=== PATIENT | male | born 1945 | race Two or more races ===

== ENCOUNTER → 2024-04-01 | Outpatient (CLI) | payer MEDICARE, MEDICAID, SELFPAY ==
--- NOTE | 2024-04-01 07:00 | EKG_ITS ---
[facility] Test Date: 2024-04-01 Pat Name: GUSTABO PETERS Department: Room: - Gender: Male Claim Attorney: LUPILLO : 1945 Requested By: Lance Rico Order Number: [id number] Reading MD: Lance Rico Measurements Intervals [place] Rate: 70 P: 5 KS: 182 QRS: -21 QRSD: 90 T: 40 QT: 369 QTc: 400 Interpretive Statements SINUS RHYTHM LEFT VENTRICULAR HYPERTROPHY AND ST-T CHANGE [VOLTAGE CRITERIA PLUS ST/T ABNORMALITY] INFERIOR MYOCARDIAL INFARCTION , PROBABLY OLD [40+ ms Q WAVE AND/OR ST/T ABNORMALITY IN II/aVF] WARNING: DATA QUALITY MAY AFFECT INTERPRETATION No previous ECG available for comparison /[id number]/[email or web address]/[id number]/ecg/[id number].pdf
[2024-04-01 07:01] VITALS: BMI 22.6
[2024-04-01 08:38] LABS: Basophils # (Auto) 0.1 Thou/mm3 (0.0-0.2); Basophils % (Auto) 1 % (0-2.5); Eosinophils # (Auto) 0.4 Thou/mm3 (0.0-0.5); Eosinophils % (Auto) 4 % (0-10); Hematocrit 43.6 % (41.0-53.0); Hemoglobin 14.5 g/dL (13.5-16.0); Immature Granulocytes % (Auto) 0 % (0-0); Immature Granulocytes Auto 0.02 Thou/mm3 (0.00-0.00); Lymphocytes # (Auto) 1.8 Thou/mm3 (1.0-4.8); Lymphocytes % (Auto) 19 % (10-50); Mean Corpuscular HGB Conc 33.3 g/dl (31.0-37.0); Mean Corpuscular Hemoglobin 29.1 pg (25.0-35.0); Mean Corpuscular Volume 88 fL (80-100); Monocytes # (Auto) 0.8 Thou/mm3 (0.0-0.8); Monocytes % (Auto) 8 % (0-12); Neutrophils # (Auto) 6.5 Thou/mm3 (1.8-7.7); Neutrophils % (Auto) 69 % (37-80); Nucleated Red Blood Cell % 0 /100 WBC (0); Platelet Count 223 Thou/mm3 (140-440); RDW Standard Deviation 47.2 fL (35.1-43.9); Red Blood Count 4.98 Miln/mm3 (4.50-5.90); White Blood Count 9.5 Thou/mm3 (3.8-10.6)
[2024-04-01 08:54] LABS: Alanine Aminotransferase 15 U/L (10-49); Albumin, Serum 4.5 gm/dL (3.4-4.8); Albumin/Globulin Ratio 1.2 (1.2-2.2); Alkaline Phosphatase 77 U/L (46-116); Anion Gap 9 (7-16); Aspartate Amino Transferase 22 U/L (0-34); BUN/Creatinine Ratio 19 Ratio (12-20); Bilirubin,Total 0.7 mg/dL (0.3-1.2); Blood Urea Nitrogen 17 mg/dL (9-23); Calcium 9.7 mg/dL (8.3-10.6); Calcium (Corrected) 9.7 mg/dL (8.5-10.1); Carbon Dioxide 29.5 mMol/L (20.0-31.0); Chloride 100 mMol/L (98-107); Creatinine (Component) 0.9 mg/dL (0.6-1.3); Estimated Creatinine Clearance 70.6 mL/min (>60); Globulin 3.7 gm/dL (2.3-3.5); Glucose 114 mg/dL (74-106); Osmolality,Calculated 278 (275-295); Potassium 4.2 mMol/L (3.4-5.1); Sodium 138 mMol/L (136-145); Total Protein 8.2 gm/dL (5.7-8.2); eGFR > 60 See Note
[2024-04-01 09:57] LABS: Collection Type, Urine Clean Catch
[2024-04-01 10:40] LABS: Bilirubin,Urine Negative (Negative); Blood,Urine Negative (Negative); Calcium Oxalate Crystals,Urine 2+; Clarity,Urine Clear (Clear/Hazy); Color,Urine Yellow (Lt Yel-Yel); Glucose, Urine Negative (Negative); Ketones,Urine Negative (Negative); Leukocyte Esterase,Urine Negative (Negative); Nitrite,Urine Negative (Negative); Protein,Urine Trace (Neg - Trace); RBC,Urine 5 /hpf (0-3); Specific Gravity,Urine 1.029 (1.001-1.035); Squamous Epithelial Cell,Urine < 1 /hpf (0-5); Urobilinogen,Urine Negative mg/dL (0.0-1.0); WBC,Urine 1 /hpf (0-5)
== END | disposition home or self-care (01) ==
LOC: SLAB 04-04 08:14
PROVIDERS: Anesthesiology; PCP Physician Assistant Medical; Referring Provider Surgery; Visit Provider Surgery
DX: N40.1 Benign prostatic hyperplasia with lower urinary tract symptoms (principal)
CPT/HCPCS: 36415; 80053; 81001; 85025; 93005

== ENCOUNTER 2024-05-14 11:35 | Day surgery (SDC) | payer MEDICARE, MEDICAID, SELFPAY ==
[2024-05-13 08:39] VITALS: BMI 24.5
[2024-05-13 09:16] LABS: Collection Type, Urine Clean Catch
[2024-05-13 10:55] LABS: Basophils % (Auto) 0 % (0-2.5); Eosinophils # (Auto) 0.1 Thou/mm3 (0.0-0.5); Eosinophils % (Auto) 1 % (0-10); Hematocrit 41.7 % (41.0-53.0); Hemoglobin 13.3 g/dL (13.5-16.0); Immature Granulocytes % (Auto) 0 % (0-0); Immature Granulocytes Auto 0.05 Thou/mm3 (0.00-0.00); Lymphocytes # (Auto) 1.2 Thou/mm3 (1.0-4.8); Lymphocytes % (Auto) 10 % (10-50); Mean Corpuscular HGB Conc 31.9 g/dl (31.0-37.0); Mean Corpuscular Hemoglobin 28.9 pg (25.0-35.0); Mean Corpuscular Volume 91 fL (80-100); Monocytes % (Auto) 8 % (0-12); Neutrophils # (Auto) 10.2 Thou/mm3 (1.8-7.7); Neutrophils % (Auto) 81 % (37-80); Nucleated Red Blood Cell % 0 /100 WBC (0); Platelet Count 266 Thou/mm3 (140-440); RDW Standard Deviation 49.2 fL (35.1-43.9); Red Blood Count 4.61 Miln/mm3 (4.50-5.90); White Blood Count 12.5 Thou/mm3 (3.8-10.6)
[2024-05-13 10:57] LABS: Bilirubin,Urine Negative (Negative); Blood,Urine Negative (Negative); Clarity,Urine Clear (Clear/Hazy); Color,Urine Yellow (Lt Yel-Yel); Glucose, Urine Negative (Negative); Hyaline Casts,Urine < 1 /hpf (0-1); Ketones,Urine Negative (Negative); Leukocyte Esterase,Urine Negative (Negative); Nitrite,Urine Negative (Negative); PH,Urine 6.5 (5.0-7.0); Protein,Urine 1+ (Neg - Trace); RBC,Urine 3 /hpf (0-3); Specific Gravity,Urine 1.028 (1.001-1.035); Squamous Epithelial Cell,Urine < 1 /hpf (0-5); WBC,Urine 1 /hpf (0-5)
[2024-05-13 11:35] LABS: Alanine Aminotransferase 25 U/L (10-49); Albumin, Serum 4.4 gm/dL (3.4-4.8); Albumin/Globulin Ratio 1.2 (1.2-2.2); Alkaline Phosphatase 92 U/L (46-116); Anion Gap 12 (7-16); Aspartate Amino Transferase 30 U/L (0-34); BUN/Creatinine Ratio 24 Ratio (12-20); Bilirubin,Total 1.3 mg/dL (0.3-1.2); Blood Urea Nitrogen 22 mg/dL (9-23); Calcium 9.8 mg/dL (8.3-10.6); Calcium (Corrected) 9.8 mg/dL (8.5-10.1); Carbon Dioxide 27.9 mMol/L (20.0-31.0); Chloride 104 mMol/L (98-107); Creatinine (Component) 0.9 mg/dL (0.6-1.3); Globulin 3.6 gm/dL (2.3-3.5); Glucose 126 mg/dL (74-106); Osmolality,Calculated 292 (275-295); Potassium 3.8 mMol/L (3.4-5.1); Sodium 144 mMol/L (136-145); eGFR > 60 See Note
--- NOTE | 2024-05-13 13:27 | SUR.PREOP ---
Pt's stated pt has been loosing his voice for the last 3 weeks, he also has trouble swallowing, he can not tolerate clear liquids and chocks on his own secretions. Pt is having testing for this in the next couple of weeks. Pt also had a lung biopsy last week in [place]. waiting on results.
--- NOTE | 2024-05-13 15:46 | SUR.PREOP ---
WBC 12.5 Dr Rico notified and ok to proceed,
[2024-05-14] VITALS (8 sets, daily range): BP systolic 120–171; BP diastolic 55–89; PULSE 69–80; RESP 15–20; TEMP 37–37.2; O2SAT 95–97; BMI 23.8
--- NOTE | 2024-05-14 07:50 | ESHP_ITS ---
RE: GUSTABO PETERS : 1945 DATE OF ADMISSION: 05/13/2024 HISTORY OF PRESENT ILLNESS: The patient is a 78-year-old Croatian-speaking male with elevated PSA of 57.5. He has nocturia 2-3 times. The patient has trouble voiding. He does not feel that he is voiding. There is no history of gross hematuria. No history of urinary burning. PREVIOUS SURGERY: None. PAST MEDICAL HISTORY: There is no history of diabetes mellitus. No history of hypertension. SOCIAL HISTORY: He has no children. ALLERGIES: NONE. MEDICATIONS: He takes Lyrica and pain medications. CLINICAL EXAMINATION: HEENT: Normal. NECK: Supple. LUNGS: Clear. CARDIOVASCULAR: Heart sounds are normal. ABDOMEN: Soft without any organomegaly. No guarding. No rigidity. EXTREMITIES: Normal. GENITOURINARY: Phallus is normal. Testes are down in the scrotum. RECTAL: Revealed moderately enlarged prostate with left lobe very hard with big left prostatic lobe nodule about 2 cm or so in size. IMPRESSION: 1. Prostatism. 2. Prostatic obstruction. 3. Elevated PSA of 57.5. 4. Left prostatic lobe nodule. PLAN: Cystoscopy and transrectal prostatic ultrasound with ultrasound-guided prostatic needle biopsy. Planned procedure, risks, and complications have been discussed with the patient. The patient has understood them and agreed to proceed. Thank you very much for your kind referral. cc: [facility] DT: 17:20:38 TT: 18:33:00 Ref: [id number] - TID: [id number]
--- NOTE | 2024-05-14 14:24 | SUR.PHASEII ---
1424 Patient arrived to recovery awake and alert, breathing unlabored, vital signs stable, denies pain and nausea, report received from Nehemiah VAZQUEZ and Dr. Ho
--- NOTE | 2024-05-14 15:36 | SUR.PHASEII ---
1536 Patient meets discharge criteria from recovery, awake and alert, breathing unlabored, vital signs stable, denies nausea and pain, patient assisted with dressing into his clothing by his , discharge instructions given to patient, his and his daughter with the assistance of the telephone healthcare specialist [facility]ri ID#[id number], patients daughter signed discharge instructions. Patient given all his belongings prior to discharge, transported via wheelchair and left in a private vehicle.
--- NOTE | 2024-05-14 18:15 | ESOP_ITS ---
RE: GUSTABO PETERS : 1945 DATE OF OPERATION: 05/14/2024 PREOPERATIVE DIAGNOSES: Prostatism, prostatic obstruction, elevated PSA of 57.5 nodule left prostatic lobe. 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 PROCEDURE PERFORMED: Cystoscopy, urethral dilatation, transrectal prostatic ultrasound with ultrasound-guided prostatic needle biopsy. ANESTHESIA: Monitored anesthesia by Dr. Ho. INDICATION: The patient is a 78-year-old gentleman, Amharic-speaking male with nocturia 2-3x, prostatic obstruction, elevated PSA of 57.5. Rectally, he has a moderately sized prostate with a very hard left prostatic lobe. The patient was now scheduled to have cystoscopy and transrectal prostatic ultrasound with ultrasound-guided prostatic needle. Planned procedure, risks, and complications have been discussed with the patient. The patient understood them and agreed to proceed. DESCRIPTION OF PROCEDURE: After the patient was brought to the operating table under adequate monitored anesthesia, the patient was placed in dorsal lithotomy position. Parts were prepped and draped in the usual fashion. Cystoscopy was then carried out, which revealed adequate urethral meatus, normal-appearing urethra, moderate-sized bilobed prostate. Scope was introduced into the bladder, which revealed 2 ounces of residual urine. There was a bladder tumor on the left wall overlying the left ureteral orifice, which is moderate size. Scope was withdrawn. Residual urine was collected for urine culture and sensitivity examination. The patient was then turned in left lateral position. Transrectal prostatic ultrasound was carried out. Biopsies were obtained from both lobes using ultrasound guidance. Prostatic volume was measured at 18.2 cubic cm. The patient tolerated the entire procedure well and left the room in good condition. IMPRESSION: 1. Cystoscopy revealed bilobed moderately enlarged prostate. 2. 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 3. The patient has a very hard prostatic lobe on the left side. Biopsies were obtained from the prostate. Prostatic volume is 18.2 cubic cm. PLAN: We will await the biopsy report of the prostate. The patient would require transurethral resection of bladder tumor in the near future. DT: 14:31:57 TT: 18:14:00 Ref: [id number] - TID: [id number]
== END 2024-05-14 15:36 | disposition home or self-care (01) ==
PROVIDERS: Anesthesiology; PCP Physician Assistant Medical; Referring Provider Surgery; Visit Provider Surgery
PROC: (CPT 55700; principal; 2024-05-14 13:45)
PROC: 0TJB8ZZ Inspection of Bladder, Via Natural or Artificial Opening Endoscopic (ICD-10-PCS; CPT 52000; 2024-05-14 13:45)
DX: C61 Malignant neoplasm of prostate (principal); R97.20 Elevated prostate specific antigen [PSA]; N40.1 Benign prostatic hyperplasia with lower urinary tract symptoms; R35.1 Nocturia
CPT/HCPCS: 52281; 55700; 36415; 76942; 80053; 81001; 85025; 87086; A4217; A4649; J0694; J2250; J2795; J3010